=== PATIENT | female | born 1945 | race Caucasian/White ===

== ENCOUNTER → 2017-06-23 | Day surgery (SDC) | payer BC ==
[2017-06-16 08:34] VITALS: Ht 162.6 cm; Wt 64.5 kg
[~2017-06-23] VITALS: Ht 162.6 cm; Wt 64.5 kg
[~2017-06-23] MED LIST: CALC600T9 PO; LIDOCAINE HCL 2% 2 ML VIAL (20MG/ML) ONE; LISI-729 PO; MULT1CAP53 PO; PROPOFOL IV EMULSION 10 MG/ML 20 ML VIAL IV ONE; SODIUM CHLORIDE 0.9% 500ML 500 ML IV ONE
--- NOTE | 2017-06-23 08:21 | Endo History and Physical ---
History & Physical Date of Service: Jun 23, 2017. Chief Complaint: history of polyps Referring Physician: Dr. Ryan Zamudio History of Present Illness 71 yo presenting for follow up colonoscopy for a history of polyps.She is without GI complaint. Past Surgical History Hx Cardiac Surgery: No Hx Internal Defibrillator: No Hx Pacemaker: No Hx Abdominal Surgery: No (TUBAL LIGATION) Hx of Implantable Prosthesis: No Hx Post-Op Nausea and Vomiting: No Hx Cancer Surgery: No Hx Thoracic Surgery: No Hx Orthopedic: No Hx Urinary Tract Surgery: No Family History Colon CA Social History Smoking Status: Current Every Day Smoker Hx Substance Use: No Hx Alcohol Use: Yes (1-2 DRINKS DAILY) Allergies Coded Allergies: Nickel (Verified Allergy, Unknown, RASH WITH CONTACT, 06/16/17) Tetracycline (Verified Allergy, Unknown, NAUSEA/VOMITTING, 06/16/17) Uncoded Allergies: CHROME (Allergy, Unknown, RASH WITH CONTACT, 06/16/17) Current Medications Reported Home Medications Medications Dose Route/Sig Max Daily Dose Days Date Category Macular Health Formula (Multiple Vitamins W/ Minerals) 1 Cap Cap 1 Cap PO QPM 06/16/17 Reported Calcium + D (Calcium Carbonate-Vitamin D) 1 Tab Tab 1 Tab PO QPM 06/16/17 Reported Zestril (Lisinopril) 5 Mg Tab 5 Mg PO QPM 06/16/17 Reported Vital Signs Weight (Kilograms): 64.55 Height (Feet): 5 Height (Inches): 4 Date Time Temp Pulse Resp B/P (MAP) Pulse Ox O2 Delivery O2 Flow Rate FiO2 06/23/17 08:13 36.8 80 18 122/72 (89) 98 Room Air Physical Exam General Appearance: WD/WN, no apparent distress Respiratory/Chest: Respiratory effort: no dyspnea Auscultation: breath sounds normal, CTA except as noted Cardiovascular: Apical Impulse: not displaced Heart Auscultation: RRR, normal S1, normal S2 Abdomen: Bowel Sounds: normal Inspection & Palpation: soft, non-distended, no tenderness, guarding & rebound Assessment and Plan 71 yo presenting for follow up colonoscopy for a history of polyps. Plan for Colonoscopy
--- NOTE | 2017-06-23 08:58 | Discharge Instructions ---
Endoscopy Patient Instructions Date / Procedure(s) Performed Jun 23, 2017. Colonoscopy Allergy Information Coded Allergies: Nickel (Verified Allergy, Unknown, RASH WITH CONTACT, 06/16/17) Tetracycline (Verified Allergy, Unknown, NAUSEA/VOMITTING, 06/16/17) Uncoded Allergies: CHROME (Allergy, Unknown, RASH WITH CONTACT, 06/16/17) Discharge Date / Findings Jun 23, 2017. Two small polyps removed One cecal polyp and one transverse colon polyp-two prophylactically placed clips were placed on transverse colon site-no bleeding during or at end of procedure Small diverticuli Internal hemorrhoids Otherwise normal exam Medication Instructions Stopped Medication(s): stopped supplements on Thursday Provider Instructions Activity Restrictions - No exercising or heavy lifting for 24 hours. - Do not drink alcohol the day of the procedure. - Do not drive a car or operate machinery until the day after the procedure. - Do not make any important decisions or sign important papers in 24 hours after the procedure. Following Day: - Return to full activity which may include returning to work/school. Diet Start your diet with liquids and light foods (jello, soup, juice, toast). Then eat your usual diet if not nauseated. Treatment For Common After Affects For mild abdominal pain, bloating, or excessive gas: - Rest - Eat lightly - Lie on right side Follow-Up Information Follow-up with Dr. Ryan Zamudio as scheduled Anesthesia Information What You Should Know You have had a procedure that required some medicine to reduce anxiety and discomfort. This treatment is called moderate sedation. After receiving the treatment, you may be sleepy, but you will be able to breathe on your own. The effects of the treatment may last for several hours. Follow these instructions along with Activity/Diet recommendations noted above: * Do NOT do anything where dizziness or clumsiness would be dangerous. * Rest quietly at home today, then you can be up and about tomorrow. * Have a responsible person stay with you the rest of today. * You may have had an I.V. today. If so, you may take the dressing off later today. Recommendations Call your doctor if: * Trouble breathing * Continuous vomiting for more than 24 hours * Temperature above 101 degrees * Severe abdominal pain or bloating * Pain not relieved by pain medicine ordered * There is increased drainage or redness from any incision * A large amount of rectal bleeding greater than 2-3 tablespoons. (If you had a polyp/s removed or have hemorrhoids, a small amount of blood - from the rectum is to be expected.) * You have any unanswered questions or concerns. IN THE EVENT OF A SERIOUS EMERGENCY, GO TO THE NEAREST EMERGENCY ROOM Your discharge instructions were prepared by provider Torres Mata. Patient Instructions Signature Page Татьяна Burrell Patient (or Guardian) Signature/Date: I have read and understand the instructions given to me by my caregivers. Caregiver/RN/Doctor Signature/Date: The above-named patient and/or guardian has received patient instructions on this date. + Original Patient Signature Page (only) stays with chart. Please make copy for patient.
[2017-06-23 09:30] VITALS: BP 153/72; PULSE 58; O2SAT 98
--- NOTE | 2017-06-23 09:42 | Anesthesiology Progress Note ---
Anesthesia Post Op Note Date & Time Jun 23, 2017 at 09:42 Vital Signs Pain Intensity: 0 Vital Signs Past 12 Hours Date Time Temp Pulse Resp B/P (MAP) Pulse Ox O2 Delivery O2 Flow Rate FiO2 06/23/17 09:15 69 18 126/79 (95) 98 Room Air 06/23/17 09:00 72 18 93/67 (76) 98 Room Air 06/23/17 08:13 36.8 80 18 122/72 (89) 98 Room Air Notes Mental Status: alert / awake / arousable, participated in evaluation Pt Amnestic to Procedure: Yes Nausea / Vomiting: adequately controlled Pain: adequately controlled Airway Patency, RR, SpO2: stable & adequate BP & HR: stable & adequate Hydration State: stable & adequate Anesthetic Complications: no major complications apparent
--- NOTE | 2017-06-23 16:39 | GI REPORT ---
Procedure Date: 06/23/2017 8:16 AM Procedure: Colonoscopy Indications: High risk colon cancer surveillance: Personal history of colonic polyps Medicines: Monitored Anesthesia Care Complications: No immediate complications. Estimated blood loss: None. Estimated Blood Loss: Estimated blood loss: none. Procedure: Pre-Anesthesia Assessment: - Pre-Anesthesia Assessment: - Prior to the procedure, a History and Physical was performed, and patient medications, allergies and sensitivities were reviewed. The patient's tolerance of previous anesthesia was reviewed. Please see eyesFinder for complete details. - The risks and benefits of the procedure and the sedation options and risks were discussed with the patient. All questions were answered and informed consent was obtained. - Patient identification and proposed procedure were verified prior to the procedure by the physician and the nurse. The procedure was verified in the pre-procedure area in the procedure room. After obtaining informed consent, the endoscope was passed carefully and meticuously under direct vision and only advanced when the lumen was clearly identified, C02 insuflation was utilized throughout the entirity of the procedure. Throughout the procedure, the patient's blood pressure, pulse, and oxygen saturations were monitored continuously. After I obtained informed consent, the scope was passed under direct vision. Throughout the procedure, the patient's blood pressure, pulse, and oxygen saturations were monitored continuously. The scope was introduced through the anus and advanced to the cecum, identified by appendiceal orifice and ileocecal valve. The colonoscopy was performed without difficulty. The patient tolerated the procedure well. The quality of the bowel preparation was good. Findings: A 2 mm polyp was found in the cecum. The polyp was sessile. The polyp was removed with a jumbo cold forceps. Resection and retrieval were complete. A 7 mm polyp was found in the transverse colon. The polyp was sessile. The polyp was removed with a cold snare. Resection and retrieval were complete. To prevent bleeding post-intervention, two hemostatic clips were successfully placed (MR conditional). There was no bleeding during, or at the end, of the procedure. Multiple small-mouthed diverticula were found in the sigmoid colon. Internal hemorrhoids were found during retroflexion. Impression: - One 2 mm polyp in the cecum, removed with a jumbo cold forceps. Resected and retrieved. - One 7 mm polyp in the transverse colon, removed with a cold snare. Resected and retrieved. Clips (MR conditional) were placed. - Diverticulosis in the sigmoid colon. - Internal hemorrhoids. Recommendation: - Repeat colonoscopy in 5 years for surveillance based on pathology results. - Return to referring physician as previously scheduled. - Await pathology results. Torres Mata MD 06/23/2017 9:00:51 AM This report has been signed electronically. Note Initiated On: 06/23/2017 8:16 AM I attest to the content of the Intraoperative Record and orders documented therein, exceptions below
== END | disposition home or self-care (01) ==
LOC: C.GI 07:39
PROVIDERS: ATTEND Internal Medicine
DX: Z12.11 Encounter for screening for malignant neoplasm of colon (principal); D12.0 Benign neoplasm of cecum; D12.3 Benign neoplasm of transverse colon; K57.30 Diverticulosis of large intestine without perforation or abscess without bleeding; Z86.010 Personal history of colon polyps; I10 Essential (primary) hypertension; Z98.51 Tubal ligation status; F17.200 Nicotine dependence, unspecified, uncomplicated; Z88.1 Allergy status to other antibiotic agents; Z98.890 Other specified postprocedural states; Z80.0 Family history of malignant neoplasm of digestive organs

== ENCOUNTER 2018-09-07 10:15 | Inpatient (IN) ==
--- OUTSIDE RECORDS SUMMARY | 2018-09-07 10:17 | External Medical Summary | Continuity of Care Document ---
:1945 Author Name Cele Chu, Provider Address Unavailable Unavailable , Care Team Providers Name Role Phone Nicole Chu, Ranjit Unavailable [email or web address], [email or web address] Unavailable Unavailable Problems Active medical history not documented Allergies and Adverse Reactions Allergy history not documented Medications Medications not documented Procedures Procedures not documented Immunizations Immunizations not documented Plan of Treatment Planned Observations Planned Goals not documented Results No Known Results Results not documented
[2018-09-07] MEDS ORDERED: SODIUM CHLORIDE 0.9% 1000ML 1,000 ML IV SCH ×3 (10:30→12:45)
--- NOTE | 2018-09-07 10:36 | XRay Report ---
XR chest 1V portable CLINICAL HISTORY: 73 years-old Female presenting with Sepsis. TECHNIQUE: Portable upright AP view of the chest was obtained. COMPARISON: None. FINDINGS: Atherosclerosis of the aortic arch. Cardiac silhouette normal in size. No focal opacity. No large eff usion or pneumothorax. Osseous structures normal. Upper abdomen normal. IMPRESSION: 1. No acute cardiopulmonary disease. Electronically signed by: Juice Rose M.D. 09/07/2018 10:34 AM
[2018-09-07 10:56] LABS: Basophils # (auto) 0.02 K/uL (0-0.2); Basophils % (auto) 0.6 %; Hematocrit (blood only) 39.6 % (37-47); Hemoglobin 13.9 g/dL (12.0-16.0); Immature Granulocytes # (auto) 0.01 K/uL (0.00-0.02); Immature Granulocytes % (auto) 0.3 %; Lymphocytes # (auto) 0.45 K/uL (1.2-3.4); Lymphocytes % (auto) 12.6 %; Mean Corpuscular Hgb Conc 35.1 g/dL (32-36); Mean Corpuscular Volume 93.6 fL (80-100); Mean Platelet Volume 10.5 fL (7.4-10.4); Monocytes # (auto) 0.16 K/uL (0.11-0.59); Monocytes % (auto) 4.5 %; Neutrophils # (auto) 2.93 K/uL (1.4-6.5); Platelet Count 134 K/uL (130-400); RDW Coefficient of Variation 14.1 % (11.5-14.5); RDW Standard Deviation 48.6 fL (36.4-46.3); Red Blood Count 4.23 M/uL (4.2-5.4); White Blood Count 3.57 K/uL (4.8-10.8)
[2018-09-07 11:13] LABS: Albumin Level 3.3 gm/dl (3.4-5.0); BUN Creatinine Ratio 13.3 (10-20); Calcium 8.1 mg/dl (8.5-10.1); Creatinine Clr Calc Pharmacy 56.6 ml/min; Est GFR (African American) 78.8
[2018-09-07 11:16] LABS: Albumin Globulin Ratio 0.8 (0.9-2); Bilirubin,Total 0.5 mg/dl (0.2-1); Globulin 3.9 gm/dl (2.5-4.0); INR 1.1 (0.9-1.1); Partial Thromboplastin Ratio 1.2; Partial Thromboplastin Time 31.3 Seconds (21.0-31.0); Prothrombin Time 11.5 Seconds (9.0-12.0); Total Protein 7.2 gm/dl (6.4-8.2)
[2018-09-07 11:39] LABS: Appearance Urine Clear (Clear); Bacteria Urine Automated Negative (Negative); Bilirubin Urine Negative (Negative); Blood Urine 2+ (Negative); Color Urine Yellow; Glucose Urine UA Negative (Negative); Ketones Urine 1+ (Negative); Leukocyte Esterase Urine Negative (Negative); Nitrite Urine Negative (Negative); Protein Urine 1+ (Negative); Specific Gravity Urine 1.018 (1.000-1.030); Urobilinogen Urine Negative (Negative)
[2018-09-07 11:46] LABS: Lyme Ab IgG w/WB Rflx Negative (Negative); Lyme Ab IgM w/WB Rflx Negative (Negative)
[2018-09-07] MEDS ORDERED: DOXYCYCLINE HYCLATE 100 MG CAP PO STA (11:51)
[2018-09-07] MEDS ORDERED: ONDANSETRON INJ 2 MG/ML 2 ML VIAL IV STA (11:51)
[2018-09-07] MEDS ORDERED: POTASSIUM CHLORIDE 10 MEQ TABCR PO STA (12:12)
--- NOTE | 2018-09-07 13:21 | History & Physical Report ---
Date of Service September 07, 2018 Assessment & Plan (1) Fever of unknown origin: -Admit to [facility] with telemetry -Patient presenting from home with reports of generalized weakness, confusion, fever -In the ED, temp 39.3, initially tachycardic in the 110s (heart rate improved after IVF), WBC 3.5K; BP stable, normal lactic acid -Possible sepsis -Symptoms improving after receiving IVF in ED -Source of infection unclear at this time; UA does not suggest UTI, CXR negative for acute cardiopulmonary findings -Patient with history of tick bites and spends a lot of time outdoors; initial Lyme screening negative, Western blot has been sent for confirmatory and anaplasmosis testing has been sent as well -Check peripheral smear -Empiric doxycycline for possible tickborne illness -Noted dental work about 1 month ago, however patient took amoxicillin for 1 week following dental procedure; await blood culture results -Patient reporting back pain, consider back imaging if no other definite source of infection is found (2) Orthostatic hypotension: -Likely secondary to hypovolemia from dehydration of acute illness -IVF, monitor orthostatic vitals -Hold home dose of lisinopril (3) Elevated AST (SGOT): -Possibly due to underlying viral /tickborne illness -Patient also with history of alcohol abuse, drinking 4 beers/day -Follow LFTs (4) Hypokalemia: -K+ 3.0 -Replace, follow potassium levels -Magnesium noted to be WNL (5) Alcohol abuse: -Drinks 4 beers/day -Monitor for signs of withdrawal -Start multivitamin, folic acid, thiamine (6) Tobacco abuse: -Patient counseled regarding tobacco cessation (7) DVT prophylaxis: -SQ Lovenox History of Present Illness Chief Complaint: Weakness, confusion Primary Care Provider: Shade Obrien DO 73-year-old female who presents to the ED with generalized weakness and confusion. Family is at the bedside who provides some history. Yesterday, patient developed generalized weakness and nausea. She reports she felt as though she had a fever yesterday morning and took her temperature and it was just above 100 F. This morning, family noted that she was confused and very weak. She was also complaining of low back pain. EMS was called and patient was brought to the ED for further evaluation. Normally patient is very active and spends a lot of time outdoors in her flower garden. She reports she has pulled a 4 ticks off of herself over the past few months. Last one was about 1 month ago. Also a month ago, patient underwent a dental procedure and was given amoxicillin to take for 1 week after. She reports she completed the course of this antibiotic. No chest pain or shortness of breath. Patient was lightheaded and dizzy however no syncopal event. She denies abdominal pain, vomiting, diarrhea. No urinary symptoms. No known rashes. In the ED, patient is febrile at 39.3 and initially tachycardic in the 110s which improved with IVF. Labs show WBC 3.5K,, K+ 3.0, AST 60. Initial Lyme testing is negative. UA does not suggest UTI. CXR is negative for acute cardiopulmonary findings. Allergies Allergy/AdvReac Type Severity Reaction Status Date / Time nickel Allergy Unknown RASH WITH Verified 09/07/18 10:38 CONTACT tetracycline Allergy Unknown NAUSEA/VOMI Verified 09/07/18 10:38 TTING CHROME Allergy Unknown RASH WITH Uncoded 09/07/18 10:38 CONTACT Home Medications Home Medications Medication Instructions Recorded Confirmed Type calcium carbonate-vitamin D3 1 tab PO PM 09/07/18 09/07/18 History [Calcium 600 + D(3)] denosumab [Prolia] 60 mg SUBCUT UD 09/07/18 09/07/18 History lisinopril 10 mg PO PM 09/07/18 09/07/18 History [id number] 1 cap PO PM 09/07/18 09/07/18 History [Macular Health Formula] Past Med/Surg History Medical History Osteoporosis (Chronic) Hypertension (Chronic) Dyslipidemia (Chronic) Surgical History History of tubal ligation (Chronic) Family History Mother Diabetes Hypertension Father Cancer Social History Preferred Language: Gambian Communication Ability: Effective Visual Impairment: No Limitations Hearing Ability: Normal Sterile Proc Tech Required: No Beliefs That Will Affect Care: None marital status: marital status details: Current Living Situation: Spouse Other Information That Helps Us Care for You: No Feels Safe at Home: Yes Safety Concerns: Feels Safe At This Time Smoking Status: Current every day smoker Tobacco Type: cigarettes Do You Dip or Chew Tobacco: No Second Hand Exposure: No Tobacco Cessation Education Requested by Patient: No Hx Alcohol Use: Yes Alcohol type: beer Alcohol Intake Frequency Comment: 4 beers/day Hx Substance Use: No Review of Systems Review of Systems: ROS per HPI, all other systems reviewed and negative Physical Exam Constitutional: WD/WN, vitals as above Eyes: PERRL, conjunctivae normal, anicteric sclerae ENMT: external ear and nose normal, oropharynx normal Respiratory: normal respiratory effort, lungs clear to auscultation Cardiovascular: Rate/Rhythm: regular rate and regular rhythm Vessels: normal peripheral pulses Extremities: no edema Gastrointestinal (Abdomen): normal bowel sounds, soft, nontender, no hepatosplenomegaly Musculoskeletal: no cyanosis or clubbing, extremities motor strength 5/5 Skin: no rashes, warm and dry Neurologic: PERRL, EOMI, accommodation nl, no face palsy, no dysarthria Psychiatric: A+Ox3, euthymic affect Results & Data Vital Signs (Past 12 Hours) Vital Signs Temp Pulse Pulse Resp BP BP Pulse Ox 09/07/18 12:01 84 21 100/58 L 94 09/07/18 12:00 83 23 92 09/07/18 11:55 94 H 19 108/59 L 95 09/07/18 11:47 82 20 108/59 L 93 09/07/18 11:45 84 20 93 09/07/18 11:32 86 22 106/60 94 09/07/18 11:30 81 19 94 09/07/18 11:17 93 H 20 114/63 94 09/07/18 11:15 92 H 21 93 09/07/18 11:03 102 H 23 93 09/07/18 11:00 105 H 26 H 93 09/07/18 10:50 108 H 16 135/73 93 09/07/18 10:46 104 H 26 H 135/73 09/07/18 10:45 109 H 24 09/07/18 10:43 108 H 16 112/68 09/07/18 10:41 106 H 22 112/68 09/07/18 10:33 94 06/18/19 10:30 107 H 28 H 94 06/18/19 10:28 39.3 C H 107 H 29 H 132/73 96 09/07/18 10:22 110 H 27 H 132/73 95 Laboratory Results Short CBC 09/07/18 Range/Units 10:28 WBC 3.57 L (4.8-10.8) K/uL Hgb 13.9 (12.0-16.0) g/dL Hct 39.6 (37-47) % Plt Count 134 (130-400) K/uL BMP 09/07/18 10:28 Sodium 133 L Potassium 3.0 L Chloride 104 Carbon Dioxide 19 L BUN 11 Creatinine 0.85 Glucose 150 H Calcium 8.1 L Liver Function 09/07/18 Range/Units 10:28 Total Bilirubin 0.5 (0.2-1) mg/dl AST 60 H (15-37) U/L ALT 56 (12-78) U/L Alkaline Phosphatase 60 (45-117) U/L Albumin 3.3 L (3.4-5.0) gm/dl Urine 09/07/18 Range/Units 11:05 Urine Color Yellow Urine Appearance Clear (Clear) Urine pH 7.0 (4.5-7.5) Ur Specific [place] 1.018 (1.000-1.030) Urine Protein 1+ H (Negative) Urine Glucose (UA) Negative (Negative) Diagnostic Findings CXR IMPRESSION: 1. No acute cardiopulmonary disease. Code Status & VTE Plan Code Status Patient is a full code as per my discussion with her. VTE Prophylaxis Plan VTE Prophylaxis will be ordered: Yes Supervising Physician Co-Signing Physician Notes Pt was seen and examined. Agreed with Samantha BLAKE exam, assessment and plan . 73-year-old female with PMH of HTN, Dyslipidemia, osteoporosis, alcohol abuse, tobacco use was brought by EMS to the ED with generalized weakness, fever and confusion. Most of the history obtained from the family since pt is a poor historian. As per daughter symptoms started yesterday, pt woke up with weakness and nausea associated with fever with temp above 100 F and chills. Also she developed pain across low back area, non radiating. Daughter said that 2 to 3 weeks, she saw a tick crawling on the patient. Daughter said that in the past, pt found tick on her. In the ER, she felt dizzy and was found to be orthostatic. Denies any chest pain, palpitation and sob. in the ER temp 39.3, initially tachycardic in the 110s, WBC 3.5K; BP stable, normal lactic acid and CXR showed no acute intracranial abnormality. Blood cx collected in the ER pending. Work up for tick borne illness/anaplasmosis pending. Received IV doxycycline in the ER. Will continue doxycycline. Continue monitor closely and continue gentle hydration. Refer to Samantha BLAKE documentation for other problems. MD Chad
[2018-09-07] MEDS: DOXYCYCLINE HYCLATE 100 MG in DEXTROSE 5% 100 ML IV SCH ×2 (14:37→21:08)
[2018-09-07] MEDS ORDERED: ACETAMINOPHEN 325 MG TAB PO PRN (14:57)
[2018-09-07] MEDS ORDERED: LORazepam 1 MG/2 ML VIAL IV PRN (14:57)
[2018-09-07] MEDS ORDERED: THIAMINE HCL 100 MG TAB PO STA (14:57)
[2018-09-07] MEDS: SODIUM CHLORIDE 0.9% 1000ML 1,000 ML IV SCH (15:23)
[2018-09-07] MEDS: FOLIC ACID 1 MG TAB PO SCH (15:49)
[2018-09-07] MEDS: MULTIVITAMIN TAB PO SCH (15:49)
[2018-09-07] MEDS ORDERED: ENOXAPARIN INJ 40 MG/0.4 ML SYR SQ SCH (16:00)
[2018-09-07] MEDS ORDERED: IBUPROFEN 600 MG TAB PO ONE (16:42)
--- NOTE | 2018-09-07 16:50 | Emergency Department Note ---
Entered by Yudith Gray acting as a scribe for History of Present Illness General Chief complaint: Fever Source: patient Mode of arrival: EMS Limitations: no limitations History of Present Illness Onset (ago): day(s) 1 Location: head (confusion) Pain Consistency: + constant Quality: + other (confusion) Associated symptoms: + confusion, + cough, + fever/chills (The patient complains of fever of 101.4) and + other (The patient complains of lightheadedness and dark urine.) Treatments prior to arrival: other (970 mg of Tylenol ) The patient is a 73 year old female who presents to the ED via EMS with complaints of constant fever, back pain, low urine output, and mild confusion that onset 1 day ago. The patient presents with her . The patient complains of fever of 101.4, lightheadedness, cough, and dark urine. The patient denies recent falls. The patient received 970 mg of Tylenol in route. Per , the patient has had several tick bites recently and they [place] an area with deer and bears. Home Medications Home Medications Medication Instructions Recorded Confirmed Type calcium carbonate-vitamin D3 1 tab PO PM 09/07/18 09/07/18 History [Calcium 600 + D(3)] denosumab [Prolia] 60 mg SUBCUT UD 09/07/18 09/07/18 History lisinopril 10 mg PO PM 09/07/18 09/07/18 History [id number] 1 cap PO PM 09/07/18 09/07/18 History [Macular Health Formula] Allergies Allergy/AdvReac Type Severity Reaction Status Date / Time nickel Allergy Unknown RASH WITH Verified 09/07/18 10:38 CONTACT tetracycline Allergy Unknown NAUSEA/VOMI Verified 09/07/18 10:38 TTING CHROME Allergy Unknown RASH WITH Uncoded 09/07/18 10:38 CONTACT Past Med/Surg History Medical History Osteoporosis (Chronic) Hypertension (Chronic) Dyslipidemia (Chronic) Surgical History History of tubal ligation (Chronic) Family History Mother Diabetes Hypertension Father Cancer Social History Preferred Language: Taiwanese Communication Ability: Effective Visual Impairment: No Limitations Hearing Ability: Normal 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 and A total of 10 systems reviewed and were otherwise negative Physical Exam Vital Signs Vital Signs - 24 hr 09/07/18 10:22 09/07/18 10:28 09/07/18 10:30 Temperature 39.3 C H Temperature Source Oral Sepsis Recent Fever Within 48 Hours No Sepsis New/Unexplained Change in Mental Status No Sepsis Action Taken by Nursing No Action Required Pulse Rate 110 H 107 H 107 H Pulse Rate [Apical] Pulse Rate from SpO2 Sensor 109 H 108 H 107 H Respiratory Rate 27 H 29 H 28 H Blood Pressure 132/73 132/73 Blood Pressure [Right Arm] Blood Pressure Mean 92 92 Blood Pressure Mean [Right Arm] Pulse Oximetry 95 96 94 Oxygen Delivery Method Room Air 09/07/18 10:33 09/07/18 10:41 09/07/18 10:43 Temperature Temperature Source Sepsis Recent Fever Within 48 Hours Sepsis New/Unexplained Change in Mental Status Sepsis Action Taken by Nursing Pulse Rate 106 H Pulse Rate [Apical] 108 H Pulse Rate from SpO2 Sensor Respiratory Rate 22 16 Blood Pressure 112/68 Blood Pressure [Right Arm] 112/68 Blood Pressure Mean 82 Blood Pressure Mean [Right Arm] 82 Pulse Oximetry 94 Oxygen Delivery Method Room Air 09/07/18 10:45 09/07/18 10:46 09/07/18 10:50 Temperature Temperature Source Sepsis Recent Fever Within 48 Hours Sepsis New/Unexplained Change in Mental Status Sepsis Action Taken by Nursing Pulse Rate 109 H 104 H 108 H Pulse Rate [Apical] Pulse Rate from SpO2 Sensor 108 H Respiratory Rate 24 26 H 16 Blood Pressure 135/73 135/73 Blood Pressure [Right Arm] Blood Pressure Mean 93 93 Blood Pressure Mean [Right Arm] Pulse Oximetry 93 Oxygen Delivery Method 09/07/18 11:00 09/07/18 11:03 09/07/18 11:15 Temperature Temperature Source Sepsis Recent Fever Within 48 Hours Sepsis New/Unexplained Change in Mental Status Sepsis Action Taken by Nursing Pulse Rate 105 H 102 H 92 H Pulse Rate [Apical] Pulse Rate from SpO2 Sensor 106 H 104 H 93 H Respiratory Rate 26 H 23 21 Blood Pressure Blood Pressure [Right Arm] Blood Pressure Mean 79 Blood Pressure Mean [Right Arm] Pulse Oximetry 93 93 93 Oxygen Delivery Method 09/07/18 11:17 09/07/18 11:30 09/07/18 11:32 Temperature Temperature Source Sepsis Recent Fever Within 48 Hours Sepsis New/Unexplained Change in Mental Status Sepsis Action Taken by Nursing Pulse Rate 93 H 81 86 Pulse Rate [Apical] Pulse Rate from SpO2 Sensor 93 H 84 87 Respiratory Rate 20 19 22 Blood Pressure 114/63 106/60 Blood Pressure [Right Arm] Blood Pressure Mean 80 75 Blood Pressure Mean [Right Arm] Pulse Oximetry 94 94 94 Oxygen Delivery Method 09/07/18 11:45 09/07/18 11:47 09/07/18 11:55 Temperature Temperature Source Sepsis Recent Fever Within 48 Hours Sepsis New/Unexplained Change in Mental Status Sepsis Action Taken by Nursing Pulse Rate 84 82 94 H Pulse Rate [Apical] Pulse Rate from SpO2 Sensor 85 84 92 H Respiratory Rate 20 20 19 Blood Pressure 108/59 L 108/59 L Blood Pressure [Right Arm] Blood Pressure Mean 75 75 Blood Pressure Mean [Right Arm] Pulse Oximetry 93 93 95 Oxygen Delivery Method 09/07/18 12:00 09/07/18 12:01 09/07/18 12:02 Temperature Temperature Source Sepsis Recent Fever Within 48 Hours Sepsis New/Unexplained Change in Mental Status Sepsis Action Taken by Nursing Pulse Rate 83 84 79 Pulse Rate [Apical] Pulse Rate from SpO2 Sensor 83 84 80 Respiratory Rate 23 21 20 Blood Pressure 100/58 L Blood Pressure [Right Arm] Blood Pressure Mean 72 Blood Pressure Mean [Right Arm] Pulse Oximetry 92 94 93 Oxygen Delivery Method 09/07/18 12:15 09/07/18 12:16 09/07/18 12:30 Temperature Temperature Source Sepsis Recent Fever Within 48 Hours Sepsis New/Unexplained Change in Mental Status Sepsis Action Taken by Nursing Pulse Rate 77 89 98 H Pulse Rate [Apical] Pulse Rate from SpO2 Sensor 78 87 96 H Respiratory Rate 21 18 19 Blood Pressure 108/59 L Blood Pressure [Right Arm] Blood Pressure Mean 75 Blood Pressure Mean [Right Arm] Pulse Oximetry 93 93 96 Oxygen Delivery Method 09/07/18 12:31 09/07/18 12:37 Temperature Temperature Source Sepsis Recent Fever Within 48 Hours Sepsis New/Unexplained Change in Mental Status Sepsis Action Taken by Nursing Pulse Rate 95 H 88 Pulse Rate [Apical] Pulse Rate from SpO2 Sensor 97 H 90 Respiratory Rate 17 20 Blood Pressure 70/54 L 115/61 Blood Pressure [Right Arm] Blood Pressure Mean 59 79 Blood Pressure Mean [Right Arm] Pulse Oximetry 96 91 Oxygen Delivery Method GENERAL: She is oriented to person, place, and time. She appears well-developed and well-nourished. She does not appear distressed. HENT: Exam performed. - Head: Normocephalic and atraumatic. - Right Ear: External ear normal. No mastoid tenderness. - Left Ear: External ear normal. No mastoid tenderness. - Mouth/Throat: The oropharynx is clear and moist. No trismus in the jaw. No de ntal abscesses or uvula swelling. No oropharyngeal exudate or tonsillar abscesses. EYES: Conjunctivae and EOM are normal. Pupils are equal, round, and reactive to light. Right eye exhibits no discharge. Left eye exhibits no discharge. No scleral icterus. NECK: Normal range of motion. Neck supple. No JVD present. No spinous process tenderness present. No carotid bruit present. No rigidity. No tracheal deviation and normal range of motion present. No Brudzinski's sign and no Kernig's sign noted. CV: Tachycardic rate, regular rhythm, normal heart sounds and intact distal pulses. There is no peripheral edema. Palpable radial pulses bue. PULM/CHEST: Effort normal and breath sounds normal. No respiratory distress. No stridor. She has no wheezes. She has no rales. Chest Wall: She exhibits no tenderness. ABD: The abdomen is soft. Bowel sounds are normal. She has no distension. No mass is present. There is no tenderness. There is no rebound, no guarding, no Smith's sign and no tenderness at McBurney's point. Rovsig negative MUSC/SKEL: Normal range of motion. There is no peripheral edema, tenderness or deformity. LYMPH: No cervical adenopathy. NEURO: She is alert and oriented to person, place, and time. She has normal strength. No cranial nerve deficit or sensory deficit. Coordination and gait normal. GCS eye subscore is 4. GCS verbal subscore is 5. GCS motor subscore is 6. cerbellar tests wnl. SKIN: Skin is warm and dry. She is not diaphoretic. PSYCH: She has a normal mood and affect. Her behavior is normal. Judgment and thought content normal. Course 1000: Medical command was taken regarding this patient prior to her arrival. She was tachycardic and febrile, called for order for Tylenol and IV fluids. 1016: Past medical records reviewed. The patient was evaluated in room B2. A complete history and physical examination was performed. Patient found to be febrile and tachycardic on initial presentation. Patient placed on radiation monitor large-bore IV access was obtained. Code sepsis was called. 1242: Blood pressure stable. Repeat exam shows that the patient is alert and oriented X3. She states that she feels better after fluid hydration and Tylenol. Repeat Exam shows that she is clear to auscultation, has no pain of palpation of abdomen, is neurologically intact, and shows no meningeal signs. Labs show a n ormal lactic acid level. Her potassium is low at 3 and was replaced in the ED. She is tolerating PO. Liver enzyme with an AST of 60 and mild leukopenia. She had a leukopenic white blood cell count of 3.7. Per family, the patient has recently removed multiple ticks from herself and lives in an area with many ticks. There is concern for anaplasmosis given her elevated liver enzyme tests as well as her leukopenia. She will be treated with doxycycline empirically. Confirmatory testing for Lyme, anaplasmosis, and ehrlichiosis has been sent. I spoke with the [facility] hospitalist to admit to Dr. Bonilla. He states that he wants a peripheral smear to be completed. Consultations Consultation #1: 1200: I reviewed the patient's case with Samantha BLAKE Hospitalist [facility] for Dr. Bonilla. She will evaluate the patient for further management. Time: 12:00 Administered Medications Acetaminophen (Tylenol) 650 mg PO Q4H PRN PRN Reason: pain/fever Stop: 10/07/18 14:56 Last Admin: 09/07/18 15:14 Dose: 650 mg Documented by: [id number] Enoxaparin Sodium (Lovenox) 40 mg SQ Q24H ILAN Stop: 10/07/18 15:59 Last Admin: 09/07/18 15:49 Dose: 40 mg Documented by: [id number] Folic Acid (Folvite) 1 mg PO QAM ILAN Stop: 10/07/18 14:56 Last Admin: 09/07/18 15:49 Dose: 1 mg Documented by: [id number] Doxycycline Hyclate 100 mg/ (Dextrose) 110 mls @ 50 mls/hr IV BID ILAN Stop: 09/21/18 12:44 Last Admin: 09/07/18 14:37 Dose: 50 mls/hr Documented by: [id number] Sodium Chloride (Nss 1000ml) 1,000 mls @ 125 mls/hr IV .Q8H ILAN Stop: 10/07/18 14:56 Last Admin: 09/07/18 15:23 Dose: 125 mls/hr Documented by: [id number] [facility]ivitamins (Multivitamin Tab) [facility] [place]: 10/07/18 14:56 Last Admin: 09/07/18 15:49 Dose: 1 tab Documented by: [id number] Discontinued Medications Doxycycline Hyclate (Vibramycin) 100 mg PO NOW STA Stop: 09/07/18 11:52 Last Admin: 09/07/18 13:47 Dose: Not Given Documented by: [id number] Sodium Chloride (Nss 1000ml) 1,000 mls @ 999 mls/hr IV .Q1H1M ILAN Stop: 09/07/18 11:30 Last Infusion: 09/07/18 12:09 Dose: 0 mls/hr Documented by: [id number] Admin: 09/07/18 10:56 Dose: 999 mls/hr Documented by: [id number] Sodium Chloride (Nss 1000ml) 1,000 mls @ 125 mls/hr IV .Q8H ILAN Stop: 10/07/18 12:44 Last Infusion: 09/07/18 15:00 Dose: 0 mls/hr Documented by: [id number] Admin: 09/07/18 13:46 Dose: 125 mls/hr Documented by: [id number] Sodium Chloride (Nss 1000ml) 1,000 mls @ 999 mls/hr IV .Q1H1M ILAN Stop: 09/07/18 13:40 Last Infusion: 09/07/18 14:37 Dose: 0 mls/hr Documented by: [id number] Admin: 09/07/18 13:00 Dose: 999 mls/hr Documented by: [id number] Ondansetron HCl (Zofran) 4 mg IV NOW STA Stop: 09/07/18 11:52 Last Admin: 09/07/18 13:46 Dose: 4 mg Documented by: [id number] Potassium Chloride (Klor-Con M10) 40 meq PO NOW STA Stop: 09/07/18 12:13 Last Admin: 09/07/18 13:46 Dose: 40 meq Documented by: [id number] Thiamine HCl (Vitamin B-1) 100 mg PO QAM STA Stop: 09/07/18 14:58 Last Admin: 09/07/18 15:49 Dose: 100 mg Documented by: [id number] Medical Decision Making Medical Records Attestation: I reviewed the patient's medical records. Home Medications Current Medication List: was personally reviewed by me Laboratory Data Attestation: I reviewed the patient's lab results. Result diagrams: 09/07/18 10:28 09/07/18 10:28 Lab Results 09/07/18 09/07/18 09/07/18 Range/Units 10:28 10:28 10:28 WBC 3.57 L (4.8-10.8) K/uL RBC 4.23 (4.2-5.4) M/uL Hgb 13.9 (12.0-16.0) g/dL Hct 39.6 (37-47) % MCV 93.6 (80-100) fL MCH 32.9 (25-34) pg MCHC 35.1 (32-36) g/dL RDW Std Deviation 48.6 H (36.4-46.3) fL RDW Coeff of Susy 14.1 (11.5-14.5) % Plt Count 134 (130-400) K/uL MPV 10.5 H (7.4-10.4) fL Immature Gran % (Auto) 0.3 % Neut % (Auto) 82.0 % Lymph % (Auto) 12.6 % [place] % (Auto) 4.5 % Eos % (Auto) 0.0 % Baso % (Auto) 0.6 % Immature Gran # (Auto) 0.01 (0.00-0.02) K/uL Neut # (Auto) 2.93 (1.4-6.5) K/uL Lymph # (Auto) 0.45 L (1.2-3.4) K/uL [place] # (Auto) 0.16 (0.11-0.59) K/uL Eos # (Auto) 0.00 (0-0.5) K/uL Baso # (Auto) 0.02 (0-0.2) K/uL Peripher Smr Path Cons Cancelled PT 11.5 (9.0-12.0) Seconds INR 1.1 (0.9-1.1) APTT 31.3 H (21.0-31.0) Seconds PTT Ratio 1.2 Sodium 133 L (136-145) mmol/L Potassium 3.0 L (3.5-5.1) mmol/L Chloride 104 (98-107) mmol/L Carbon Dioxide 19 L (21-32) mmol/L Anion Gap 10.0 (3-11) BUN 11 (7-18) mg/dl Creatinine 0.85 (0.6-1.2) mg/dl Est Cr Clr Drug Dosing 56.6 ml/min Est GFR ( Amer) 78.8 Est GFR (Non-Af Amer) 68.0 BUN/Creatinine Ratio 13.3 (10-20) Glucose 150 H (70-99) mg/dl Lactate (0.4-2.0) mmol/L Calcium 8.1 L (8.5-10.1) mg/dl Magnesium (1.8-2.4) mg/dl Total Bilirubin 0.5 (0.2-1) mg/dl AST 60 H (15-37) U/L ALT 56 (12-78) U/L Alkaline Phosphatase 60 (45-117) U/L Total Protein 7.2 (6.4-8.2) gm/dl Albumin 3.3 L (3.4-5.0) gm/dl Globulin 3.9 (2.5-4.0) gm/dl Albumin/Globulin Ratio 0.8 L (0.9-2) Urine Color Urine Appearance (Clear) Urine pH (4.5-7.5) Ur Specific [place] (1.000-1.030) Urine Protein (Negative) Urine Glucose (UA) (Negative) Urine Ketones (Negative) Urine Blood (Negative) Urine Nitrite (Negative) Urine Bilirubin (Negative) Urine Urobilinogen (Negative) Ur Leukocyte Esterase (Negative) Urine WBC (Auto) (0-5) /hpf Urine RBC (Auto) (0-4) /hpf U Hyaline Cast (Auto) (0-5) /lpf U Epithel Cells (Auto) (0-5) /lpf Urine Bacteria (Auto) (Negative) Lyme Disease IgG Ab (Negative) Lyme Disease IgM Ab (Negative) 09/07/18 09/07/18 09/07/18 Range/Units 10:28 10:28 10:28 WBC (4.8-10.8) K/uL RBC (4.2-5.4) M/uL Hgb (12.0-16.0) g/dL Hct (37-47) % MCV (80-100) fL MCH (25-34) pg MCHC (32-36) g/dL RDW Std Deviation (36.4-46.3) fL RDW Coeff of Susy (11.5-14.5) % Plt Count (130-400) K/uL MPV (7.4-10.4) fL Immature Gran % (Auto) % Neut % (Auto) % Lymph % (Auto) % [place] % (Auto) % Eos % (Auto) % Baso % (Auto) % Immature Gran # (Auto) (0.00-0.02) K/uL Neut # (Auto) (1.4-6.5) K/uL Lymph # (Auto) (1.2-3.4) K/uL [place] # (Auto) (0.11-0.59) K/uL Eos # (Auto) (0-0.5) K/uL Baso # (Auto) (0-0.2) K/uL Peripher Smr Path Cons PT (9.0-12.0) Seconds INR (0.9-1.1) APTT (21.0-31.0) Seconds PTT Ratio Sodium (136-145) mmol/L Potassium (3.5-5.1) mmol/L Chloride (98-107) mmol/L Carbon Dioxide (21-32) mmol/L Anion Gap (3-11) BUN (7-18) mg/dl Creatinine (0.6-1.2) mg/dl Est Cr Clr Drug Dosing ml/min Est GFR ( Amer) Est GFR (Non-Af Amer) BUN/Creatinine Ratio (10-20) Glucose (70-99) mg/dl Lactate 1.1 (0.4-2.0) mmol/L Calcium (8.5-10.1) mg/dl Magnesium (1.8-2.4) mg/dl Total Bilirubin (0.2-1) mg/dl AST (15-37) U/L ALT (12-78) U/L Alkaline Phosphatase (45-117) U/L Total Protein (6.4-8.2) gm/dl Albumin (3.4-5.0) gm/dl Globulin (2.5-4.0) gm/dl Albumin/Globulin Ratio (0.9-2) Urine Color Urine Appearance (Clear) Urine pH (4.5-7.5) Ur Specific [place] (1.000-1.030) Urine Protein (Negative) Urine Glucose (UA) (Negative) Urine Ketones (Negative) Urine Blood (Negative) Urine Nitrite (Negative) Urine Bilirubin (Negative) Urine Urobilinogen (Negative) Ur Leukocyte Esterase (Negative) Urine WBC (Auto) (0-5) /hpf Urine RBC (Auto) (0-4) /hpf U Hyaline Cast (Auto) (0-5) /lpf U Epithel Cells (Auto) (0-5) /lpf Urine Bacteria (Auto) (Negative) Lyme Disease IgG Ab Negative (Negative) Lyme Disease IgM Ab Negative (Negative) 09/07/18 09/07/18 Range/Units 10:28 11:05 WBC (4.8-10.8) K/uL RBC (4.2-5.4) M/uL Hgb (12.0-16.0) g/dL Hct (37-47) % MCV (80-100) fL MCH (25-34) pg MCHC (32-36) g/dL RDW Std Deviation (36.4-46.3) fL RDW Coeff of Susy (11.5-14.5) % Plt Count (130-400) K/uL MPV (7.4-10.4) fL Immature Gran % (Auto) % Neut % (Auto) % Lymph % (Auto) % [place] % (Auto) % Eos % (Auto) % Baso % (Auto) % Immature Gran # (Auto) (0.00-0.02) K/uL Neut # (Auto) (1.4-6.5) K/uL Lymph # (Auto) (1.2-3.4) K/uL [place] # (Auto) (0.11-0.59) K/uL Eos # (Auto) (0-0.5) K/uL Baso # (Auto) (0-0.2) K/uL Peripher Smr Path Cons PT (9.0-12.0) Seconds INR (0.9-1.1) APTT (21.0-31.0) Seconds PTT Ratio Sodium (136-145) mmol/L Potassium (3.5-5.1) mmol/L Chloride (98-107) mmol/L Carbon Dioxide (21-32) mmol/L Anion Gap (3-11) BUN (7-18) mg/dl Creatinine (0.6-1.2) mg/dl Est Cr Clr Drug Dosing ml/min Est GFR ( Amer) Est GFR (Non-Af Amer) BUN/Creatinine Ratio (10-20) Glucose (70-99) mg/dl Lactate (0.4-2.0) mmol/L Calcium (8.5-10.1) mg/dl Magnesium 2.0 (1.8-2.4) mg/dl Total Bilirubin (0.2-1) mg/dl AST (15-37) U/L ALT (12-78) U/L Alkaline Phosphatase (45-117) U/L Total Protein (6.4-8.2) gm/dl Albumin (3.4-5.0) gm/dl Globulin (2.5-4.0) gm/dl Albumin/Globulin Ratio (0.9-2) Urine Color Yellow Urine Appearance Clear (Clear) Urine pH 7.0 (4.5-7.5) Ur Specific [place] 1.018 (1.000-1.030) Urine Protein 1+ H (Negative) Urine Glucose (UA) Negative (Negative) Urine Ketones 1+ H (Negative) Urine Blood 2+ H (Negative) Urine Nitrite Negative (Negative) Urine Bilirubin Negative (Negative) Urine Urobilinogen Negative (Negative) Ur Leukocyte Esterase Negative (Negative) Urine WBC (Auto) 1-5 (0-5) /hpf Urine RBC (Auto) 10-30 H (0-4) /hpf U Hyaline Cast (Auto) 1-5 (0-5) /lpf U Epithel Cells (Auto) 10-20 H (0-5) /lpf Urine Bacteria (Auto) Negative (Negative) Lyme Disease IgG Ab (Negative) Lyme Disease IgM Ab (Negative) Imaging Data Radiologist's Impression: Radiology results as stated below per my review and the radiologist's interpretation: XR chest 1V portable CLINICAL HISTORY: 73 years-old Female presenting with Sepsis. TECHNIQUE: Portable upright AP view of the chest was obtained. COMPARISON: None. FINDINGS: Atherosclerosis of the aortic arch. Cardiac silhouette normal in size. No focal opacity. No large effusion or pneumothorax. Osseous structures normal. Upper abdomen normal. IMPRESSION: 1. No acute cardiopulmonary disease. Electronically signed by: Juice Rose M.D. 09/07/2018 10:34 AM Dictated: 09/07/18 1033 Transcribed: 09/07/18 1033 ECG Data Attestation: I personally reviewed and interpreted this ECG as follows: Indication: altered mental status (confusion) and tachycardia Rate (beats per minute): 111 Rhythm: sinus rhythm Findings: + other (UT, QRS, QTC within normal limits); no ST depression and no ST elevation Blood Pressure Blood Pressure Findings: Low blood pressure Blood Pressure Disposition: further management by hospitalist JOSE Narrative 1000: Medical command was taken regarding this patient prior to her arrival. She was tachycardic and febrile, called for order for Tylenol and IV fluids. 1016: Past medical records reviewed. The patient was evaluated in room B2. A complete history and physical examination was performed. Patient found to be febrile and tachycardic on initial presentation. Patient placed on radiation monitor large-bore IV access was obtained. Code sepsis was called. 1242: Blood pressure stable. Repeat exam shows that the patient is alert and oriented X3. She states that she feels better after fluid hydration and Tylenol. Repeat Exam shows that she is clear to auscultation, has no pain of palpation of abdomen, is neurologically intact, and shows no meningeal signs. Labs show a normal lactic acid level. Her potassium is low at 3 and was replaced in the ED. She is tolerating PO. Liver enzyme with an AST of 60 and mild leukopenia. She had a leukopenic white blood cell count of 3.7. Per family, the patient has recently removed multiple ticks from herself and lives in an area with many ticks. There is concern for anaplasmosis given her elevated liver enzyme tests as well as her leukopenia. She will be treated with doxycycline empirically. Confirmatory testing for Lyme, anaplasmosis, and ehrlichiosis has been sent. [facility] Bonilla. He states that he wants a peripheral smear to be completed. Impression & Plan Sepsis, Hypokalemia Critical Care Time Critical Care Time: Yes (36) Total Critical Care Time: 36 I have personally spent 36 minutes of critical care time in the direct management of this patient. This includes bedside care, interpretation of diagnostic studies, and testing, discussion with consultants, patient, and family members, and other required patient management activities. This 36 minutes is in excess of all separately billable procedures. Discharge Plan Visit Data *Final* Discharge Date/Time: 09/07/18 14:41 Chief Complaint: Fever ED Provider: Josh Hollingsworth Discharge Problem: Sepsis, Hypokalemia Patient Disposition: Admitted As Inpatient Discharge Instructions Interventions: ED Discharge Assessment Last Done: 09/07/18 14:41 The scribe's documentation has been prepared under my direction and personally reviewed by me in its entirety. I confirm that the note above accurately reflects all work, treatment, procedures, and medical decision making performed by me.
[2018-09-07] MEDS ORDERED: cefTRIAXone SODIUM 1,000 MG in DEXTROSE 5% 50 ML IV SCH (17:00)
[2018-09-07] MEDS: CALCIUM 600MG + VIT D 400 IU TAB PO SCH (22:11)
[2018-09-08] MEDS: SODIUM CHLORIDE 0.9% 1000ML 1,000 ML IV SCH ×3 (00:05→16:09)
[2018-09-08] MEDS ORDERED: DOXYCYCLINE HYCLATE 100 MG in DEXTROSE 5% 100 ML IV SCH (03:00)
[2018-09-08 07:07] LABS: Hematocrit (blood only) 35.2 % (37-47); Mean Corpuscular Hgb Conc 34.1 g/dL (32-36); Mean Corpuscular Volume 94.6 fL (80-100); RDW Coefficient of Variation 14.4 % (11.5-14.5); RDW Standard Deviation 49.9 fL (36.4-46.3); Red Blood Count 3.72 M/uL (4.2-5.4); White Blood Count 2.33 K/uL (4.8-10.8)
[2018-09-08 07:41] LABS: Albumin Level 2.4 gm/dl (3.4-5.0); BUN Creatinine Ratio 17.9 (10-20); Calcium 7.2 mg/dl (8.5-10.1); Creatinine Clr Calc Pharmacy 84.9 ml/min; Est GFR (African American) 107.2; Est GFR (Non-African American) 92.5; Potassium 3.5 mmol/L (3.5-5.1)
[2018-09-08 07:43] LABS: Albumin Globulin Ratio 0.8 (0.9-2); Bilirubin,Total 0.3 mg/dl (0.2-1); Total Protein 5.4 gm/dl (6.4-8.2)
[2018-09-08 07:46] LABS: Mean Platelet Volume 10.9 fL (7.4-10.4); Platelet Count 73 K/uL (130-400)
[2018-09-08 07:47] LABS: Platelet Estimate Decreased (Normal)
[2018-09-08] MEDS: MULTIVITAMIN TAB PO SCH (07:47)
[2018-09-08] MEDS: FOLIC ACID 1 MG TAB PO SCH (07:47)
--- NOTE | 2018-09-08 12:33 | Hospitalist Progress Note ---
Date of Service September 08, 2018 Assessment & Plan (1) Anaplasmosis: Doxy, cont supportive care. Trend daily labs. Leukopenia and thrombus cytopenia present and consistent with infection. (2) Orthostatic hypotension: -Likely secondary to hypovolemia from dehydration of acute illness -IVF, orthostatics are negative this morning. -Hold home dose of lisinopril (3) Elevated AST (SGOT): -Possibly due to underlying viral /tickborne illness -Patient also with history of alcohol abuse, drinking 4 beers/day -approx same today (4) Alcohol abuse: -Drinks 4 beers/day -Monitor for signs of withdrawal -Continue multivitamin, folic acid, thiamine (5) Tobacco abuse: Patient counseled regarding tobacco cessation (6) DVT prophylaxis: SCDs with Lovenox held in setting of thrombus cytopenia. Full code Disposition-continue telemetry monitoring. Sherie Donato DO [facility] Hospitalist Subjective 73-year-old female with multiple recent tick bites from working in her garden presented with generalized weakness, confusion, and fever. Lab abnormalities and clinical picture were consistent with sepsis. A peripheral smear was checked and revealed a cytoplasmic inclusion body consistent with Anaplasma. She was started on doxycycline and improved overnight. She is mentating at baseline today and denies any pain. Skin check reveals no evidence of rash or bite anywhere. She was orthostatic last night and reports persistent dizziness with standing. Repeat orthostatics today or negative after IV fluids overnight. She is requesting diet be advanced from clear liquids to solid food. Multiple questions per family members that were answered to their satisfaction. Review of Systems Review of Systems: All systems reviewed & are unremarkable except as noted in HPI & below Physical Exam Physical Exam: CONSTITUTIONAL: WNWD, vitals as above, generally well-appearin g EYES: normal conjunctivae, no scleral icterus ENT: MMM RESPIRATORY: clear to auscultation bilaterally, no crackles, rales or wheezes, normal respiratory effort CARDIOVASCULAR: regular rate and rhythm, S1 and 2 heard without murmurs, gallops or rubs, no JVD, no peripheral edema GASTROINTESTINAL: normal bowel sounds, soft, nontender, nondistended MUSCULOSKELETAL: strength 5/5 throughout, head is normocephalic and atraumatic, neck supple, normal palpation of chest wall without tenderness SKIN: warm and dry, no rashes or evidence of insect bite. NEUROLOGIC: CN 2-12 grossly intact, no sensory deficit, normal cognition, normal speech, no tremor. No gross focal deficits. PSYCHIATRIC: alert cooperative and oriented to person, place and time. Results & Data Vital Signs (Past 12 Hours) Vital Signs Temp Pulse Resp BP BP Pulse Ox 09/08/18 12:00 37.1 C 67 18 109/69 95 09/08/18 11:10 36.7 C 61 16 107/67 96 09/08/18 07:36 36.7 C 73 18 104/63 98 09/08/18 04:10 36.6 C 59 L 18 91/60 L 96 Laboratory Results Short CBC 09/08/18 Range/Units 06:56 WBC 2.33 L (4.8-10.8) K/uL Hgb 12.0 (12.0-16.0) g/dL Hct 35.2 L (37-47) % Plt Count 73 L (130-400) K/uL BMP 09/08/18 06:56 Sodium 141 D Potassium 3.5 D Chloride 114 H Carbon Dioxide 20 L BUN 10 Creatinine 0.56 L Glucose 81 Calcium 7.2 L Liver Function 09/08/18 Range/Units 06:56 Total Bilirubin 0.3 (0.2-1) mg/dl AST 63 H (15-37) U/L ALT 67 (12-78) U/L Alkaline Phosphatase 46 (45-117) U/L Albumin 2.4 L (3.4-5.0) gm/dl Medications Administered Current Inpatient Medications Acetaminophen (Tylenol) 650 mg PO Q4H PRN PRN Reason: pain/fever Stop: 10/07/18 14:56 Last Admin: 09/07/18 15:14 Dose: 650 mg Documented by: Doxycycline Hyclate (Vibramycin) 100 mg PO Q12H ILAN Stop: 09/22/18 17:59 Enoxaparin Sodium (Lovenox) 40 mg SQ Q24H ILAN Stop: 10/07/18 15:59 Last Admin: 09/07/18 15:49 Dose: 40 mg Documented by: Folic Acid (Folvite) 1 mg PO QAM ILAN Stop: 10/07/18 14:56 Last Admin: 09/08/18 07:47 Dose: 1 mg Documented by: Lorazepam (Ativan) 1 mg in 2 mls @ 2 mls/min IV ONE PRN; Protocol PRN Reason: EtoH Withdrawal AWSS 6-10 Sodium Chloride (Nss 1000ml) 1,000 mls @ 125 mls/hr IV .Q8H ILAN Stop: 10/07/18 14:56 Last Admin: 09/08/18 07:47 Dose: 125 mls/hr Documented by: Multivitamins (Multivitamin Tab) 1 tab PO QAM ILAN Stop: 10/07/18 14:56 Last Admin: 09/08/18 07:47 Dose: 1 tab Documented by: Multivitamins/Minerals (Caltrate Plus) 1 tab PO PM ILAN Stop: 10/07/18 20:59 Last Admin: 09/07/18 22:11 Dose: Not Given Documented by:
[2018-09-08] MEDS: DOXYCYCLINE HYCLATE 100 MG CAP PO SCH (17:05)
[2018-09-08] MEDS: CALCIUM 600MG + VIT D 400 IU TAB PO SCH (20:57)
[2018-09-09 07:56] LABS: Hematocrit (blood only) 35.3 % (37-47); Hemoglobin 12.2 g/dL (12.0-16.0); Mean Corpuscular Hgb Conc 34.6 g/dL (32-36); Mean Corpuscular Volume 94.4 fL (80-100); Mean Platelet Volume 11.9 fL (7.4-10.4); Platelet Count 78 K/uL (130-400); RDW Coefficient of Variation 14.4 % (11.5-14.5); RDW Standard Deviation 49.7 fL (36.4-46.3); Red Blood Count 3.74 M/uL (4.2-5.4); White Blood Count 2.75 K/uL (4.8-10.8)
[2018-09-09 07:58] LABS: Basophils # (auto) 0.02 K/uL (0-0.2); Basophils % (auto) 0.7 %; Eosinophils # (auto) 0.01 K/uL (0-0.5); Eosinophils % (auto) 0.4 %; Giant Platelets 1+; Immature Granulocytes # (auto) 0.01 K/uL (0.00-0.02); Immature Granulocytes % (auto) 0.4 %; Lymphocytes # (auto) 1.39 K/uL (1.2-3.4); Lymphocytes % (auto) 50.5 %; Monocytes # (auto) 0.47 K/uL (0.11-0.59); Monocytes % (auto) 17.1 %; Neutrophils # (auto) 0.85 K/uL (1.4-6.5); Neutrophils % (auto) 30.9 %
[2018-09-09 08:05] LABS: BUN Creatinine Ratio 12.2 (10-20); Calcium 8.1 mg/dl (8.5-10.1); Creatinine Clr Calc Pharmacy 69.9 ml/min; Est GFR (African American) 100.6; Est GFR (Non-African American) 86.8; Magnesium 2.2 mg/dl (1.8-2.4); Potassium 3.2 mmol/L (3.5-5.1)
[2018-09-09] MEDS: MULTIVITAMIN TAB PO SCH (08:09)
[2018-09-09] MEDS: DOXYCYCLINE HYCLATE 100 MG CAP PO SCH ×2 (08:10→18:32)
[2018-09-09] MEDS: FOLIC ACID 1 MG TAB PO SCH (08:10)
--- NOTE | 2018-09-09 09:16 | Hospitalist Progress Note ---
Date of Service September 09, 2018 Assessment & Plan (1) Neutropenia: Likely secondary to infection. Placed on neutropenic precautions. Patient is afebrile. (2) Anaplasmosis: Doxy, cont supportive care. Trend daily labs. Leukopenia and thrombocytopenia present and consistent with infection. Appreciate ID recommendations. (3) Orthostatic hypotension: -Likely secondary to hypovolemia from dehydration of acute illness -IVF, orthostatics are negative this morning. -We will restart lisinopril now. (4) Elevated AST (SGOT): -Possibly due to underlying viral /tickborne illness -Patient also with history of alcohol abuse, drinking 4 beers/day -Monitor (5) Alcohol abuse: -Drinks 4 beers/day -Monitor for signs of withdrawal -Continue multivitamin, folic acid, thiamine (6) Tobacco abuse: Patient counseled regarding tobacco cessation (7) DVT prophylaxis: SCDs with Lovenox held in setting of thrombus cytopenia. Full code Disposition-transfer to [facility]. Sherie Donato DO [facility] Hospitalist Subjective Feeling well and improved since yesterday. Afebrile. Tolerating p.o. Reports that some paresthesias that were felt yesterday in the bilateral arms and face have now improved and are almost gone. Review of Systems Review of Systems: All systems reviewed & are unremarkable except as noted in HPI & below Physical Exam Physical Exam: CONSTITUTIONAL: WNWD, vitals as above, generally well- appearing EYES: normal conjunctivae, no scleral icterus ENT: MMM RESPIRATORY: clear to auscultation bilaterally, no crackles, rales or wheezes, normal respiratory effort CARDIOVASCULAR: regular rate and rhythm, S1 and 2 heard without murmurs, gallops or rubs, no JVD, no peripheral edema GASTROINTESTINAL: normal bowel sounds, soft, nontender, nondistended MUSCULOSKELETAL: strength 5/5 throughout, head is normocephalic and atraumatic, neck supple, normal palpation of chest wall without tenderness SKIN: warm and dry, no rashes or evidence of insect bite. NEUROLOGIC: CN 2-12 grossly intact, no sensory deficit, normal cognition, normal speech, no tremor. No gross focal deficits. PSYCHIATRIC: alert cooperative and oriented to person, place and time. Results & Data Vital Signs (Past 12 Hours) Vital Signs Temp Pulse Pulse Resp BP BP Pulse Ox 09/09/18 07:17 37.0 C 67 19 112/73 97 09/09/18 03:53 36.8 C 63 18 119/76 96 09/08/18 23:59 57 L 09/08/18 22:21 37.2 C 61 20 109/68 95 Laboratory Results Short CBC 09/09/18 Range/Units 07:18 WBC 2.75 L (4.8-10.8) K/uL Hgb 12.2 (12.0-16.0) g/dL Hct 35.3 L (37-47) % Plt Count 78 L (130-400) K/uL BMP 09/09/18 07:18 Sodium 142 Potassium 3.2 L Chloride 113 H Carbon Dioxide 21 BUN 8 Creatinine 0.68 Glucose 141 H Calcium 8.1 L Medications Administered Current Inpatient Medications Acetaminophen (Tylenol) 650 mg PO Q4H PRN PRN Reason: pain/fever Stop: 10/07/18 14:56 Last Admin: 09/07/18 15:14 Dose: 650 mg Documented by: Doxycycline Hyclate (Vibramycin) 100 mg PO Q12H ILAN Stop: 09/22/18 17:59 Last Admin: 09/09/18 08:10 Dose: 100 mg Documented by: Enoxaparin Sodium (Lovenox) 40 mg SQ Q24H ILAN Stop: 10/07/18 15:59 Last Admin: 09/07/18 15:49 Dose: 40 mg Documented by: Folic Acid (Folvite) 1 mg PO QAM ILAN Stop: 10/07/18 14:56 Last Admin: 09/09/18 08:10 Dose: 1 mg Documented by: Lorazepam (Ativan) 1 mg in 2 mls @ 2 mls/min IV ONE PRN; Protocol PRN Reason: EtoH Withdrawal AWSS 6-10 Multivitamins (Multivitamin Tab) 1 tab PO QAM [facility] Stop: 10/07/18 14:56 Last Admin: 09/09/18 08:09 Dose: 1 tab Documented by: Multivitamins/Minerals (Caltrate Plus) 1 tab PO PM ILAN Stop: 10/07/18 20:59 Last Admin: 09/08/18 20:57 Dose: 1 tab Documented by: Potassium Chloride (Klor-Con M20) 40 meq PO Q6H ILAN Stop: 09/09/18 15:31
--- NOTE | 2018-09-09 10:04 | Infectious Disease Consult ---
Date of Consultation September 09, 2018 Assessment & Plan (1) Anaplasmosis: 73-year-old female with what appears to be acute Anaplasma infection. Typically patients will respond quickly to doxycycline therapy, would continue 100 mg twice daily orally for 14 days. This would cover the possibility of early Lyme disease. Likely will take up to a week to get PCR results. Will follow. History of Present Illness Reason for Consultation: Anaplasma infection, falling white blood cell count, antibiotic recommendations Attending Physician: Sherie Donato, DO History of Present Illness 73-year-old female with a history of hypertension, dyslipidemia who was in usual state of health until several days prior to admission when she developed fever, chills, weakness and fatigue. Apparently was found somewhat confused by family members and brought to the hospital. She was found to have developing neutropenia and thrombocytopenia with minimal elevation of liver enzyme 1 inclusions seen on peripheral smear that could be consistent with Anaplasma infection. Has been started on doxycycline. Feeling better than 2 days ago. Has had multiple tick exposures, no rash, Lyme serology negative. Allergies Allergy/AdvReac Type Severity Reaction Status Date / Time nickel Allergy Unknown RASH WITH Verified 09/07/18 10:38 CONTACT tetracycline Allergy Unknown NAUSEA/VOMI Verified 09/07/18 10:38 TTING CHROME Allergy Unknown RASH WITH Uncoded 09/07/18 10:38 CONTACT Home Medications Home Medications Medication Instructions Recorded Confirmed Type calcium carbonate-vitamin D3 1 tab PO PM 09/07/18 09/07/18 History [Calcium 600 + D(3)] denosumab [Prolia] 60 mg SUBCUT UD 09/07/18 09/07/18 History lisinopril 10 mg PO PM 09/07/18 09/07/18 History [id number] 1 cap PO PM 09/07/18 09/07/18 History [Macular Health Formula] Patient History Medical History Osteoporosis (Chronic) Hypertension (Chronic) Dyslipidemia (Chronic) Surgical History History of tubal ligation (Chronic) Family History Mother Diabetes Hypertension Father Cancer Social History Preferred Language: Cambodian Communication Ability: Effective Visual Impairment: No Limitations Hearing Ability: Normal 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 Beliefs That Will Affect Care: None marital status: marital status details: Current Living Situation: Spouse Other Information That Helps Us Care for You: No Feels Safe at Home: Yes Safety Concerns: Feels Safe At This Time Smoking Status: Current every day smoker Tobacco Type: cigarettes Do You Dip or Chew Tobacco: No Second Hand Exposure: No Tobacco Cessation Education Requested by Patient: No Hx Alcohol Use: Yes Alcohol type: beer Alcohol Intake Frequency Comment: 4 beers/day Hx Substance Use: No Review of Systems Review of Systems: All systems reviewed & are unremarkable except as noted in HPI & below Physical Exam Constitutional: WD/WN, vitals as above comfortable; no acute distress Eyes: PERRL, conjunctivae normal, anicteric sclerae ENMT: external ear and nose normal, oropharynx normal Neck: trachea midline, no thyromegaly neck nontender Respiratory: normal respiratory effort, lungs clear to auscultation normal percussion; does not use accessory muscles Cardiovascular: Rate/Rhythm: regular rate and regular rhythm Heart Sounds: normal S1 and normal S2; no gallop, no murmur and no cardiac rub Vessels: normal peripheral pulses; no JVD Gastrointestinal (Abdomen): normal bowel sounds, soft, nontender, no hepatosplenomegaly Musculoskeletal: no cyanosis or clubbing, extremities motor strength 5/5 Spine: thoracic spine normal to inspection and lumbar spine normal to inspection; no cervical spinal tenderness Skin: no rashes, warm and dry normal turgor; no lesions Neurologic: patellar DTR's 2+ bilat, sensation intact no focal motor deficits Psychiatric: A+Ox3, euthymic affect Orientation: cooperative Lymphatic: no cervical or axillary lymphadenopathy no inguinal lymphadenopathy Results & Data Vital Signs (Past 12 Hours) Vital Signs Temp Pulse Pulse Resp BP BP Pulse Ox 09/09/18 07:17 37.0 C 67 19 112/73 97 09/09/18 03:53 36.8 C 63 18 119/76 96 09/08/18 23:59 57 L 09/08/18 22:21 37.2 C 61 20 109/68 95 Laboratory Results Short CBC 09/09/18 Range/Units 07:18 WBC 2.75 L (4.8-10.8) K/uL Hgb 12.2 (12.0-16.0) g/dL Hct 35.3 L (37-47) % Plt Count 78 L (130-400) K/uL BMP 09/09/18 07:18 Sodium 142 Potassium 3.2 L Chloride 113 H Carbon Dioxide 21 BUN 8 Creatinine 0.68 Glucose 141 H Calcium 8.1 L Diagnostic Findings Microbiology 09/07/18 10:37 Blood Aerobic Blood Culture - Preliminary No growth in Aerobic bottle after 24 hours. 09/07/18 10:37 Blood Anaerobic Blood Culture - Preliminary No growth in Anaerobic bottle after 24 hours. 09/07/18 10:28 Blood Aerobic Blood Culture - Preliminary No growth in Aerobic bottle after 24 hours. 09/07/18 10:28 Blood Anaerobic Blood Culture - Preliminary No growth in Anaerobic bottle after 24 hours. XR chest 1V portable CLINICAL HISTORY: 73 years-old Female presenting with Sepsis. TECHNIQUE: Portable upright AP view of the chest was obtained. COMPARISON: None. FINDINGS: Atherosclerosis of the aortic arch. Cardiac silhouette normal in size. No focal opacity. No large effusion or pneumothorax. Osseous structures normal. Upper abdomen normal. IMPRESSION: 1. No acute cardiopulmonary disease. Electronically signed by: Juice Rose M.D. 09/07/2018 10:34 AM Dictated: 09/07/18 1033 Transcribed: 09/07/18 1033
[2018-09-09] MEDS: POTASSIUM CHLORIDE 20 MEQ TABCR PO SCH ×2 (10:28→16:11)
[2018-09-09 13:19] LABS: 18KDIGG Band NONREACTIVE (NONREACTIVE); 23KDIGG Band NONREACTIVE (NONREACTIVE); 23KDIGM Band REACTIVE (NONREACTIVE); 28KDIGG Band NONREACTIVE (NONREACTIVE); 30KDIGG Band NONREACTIVE (NONREACTIVE); 39KDIGG Band NONREACTIVE (NONREACTIVE); 39KDIGM Band NONREACTIVE (NONREACTIVE); 41KDIGG Band REACTIVE (NONREACTIVE); 41KDIGM Band NONREACTIVE (NONREACTIVE); 45KDIGG Band NONREACTIVE (NONREACTIVE); 58KDIGG Band NONREACTIVE (NONREACTIVE); 66KDIGG Band NONREACTIVE (NONREACTIVE); 93KDIGG Band NONREACTIVE (NONREACTIVE); Lyme Antibodies, WB IgG NEGATIVE (NEGATIVE); Lyme Antibodies, WB IgM NEGATIVE (NEGATIVE)
[2018-09-09 19:33] LABS: Anaplasma phagocytophila IgM <1:20 (<1:20); Ehrlichia chaff IgG Ab <1:64 (<1:64); Ehrlichia chaff IgM Ab <1:20 (<1:20)
[2018-09-09] MEDS: CALCIUM 600MG + VIT D 400 IU TAB PO SCH (20:08)
[2018-09-09] MEDS ORDERED: LISINOPRIL 10 MG TAB PO SCH (21:00)
[2018-09-10] MEDS: DOXYCYCLINE HYCLATE 100 MG CAP PO SCH (05:24)
[2018-09-10 07:04] LABS: Hematocrit (blood only) 35.9 % (37-47); Hemoglobin 12.8 g/dL (12.0-16.0); Mean Corpuscular Hgb Conc 35.7 g/dL (32-36); Mean Platelet Volume 11.4 fL (7.4-10.4); Platelet Count 104 K/uL (130-400); RDW Coefficient of Variation 14.5 % (11.5-14.5); RDW Standard Deviation 49.3 fL (36.4-46.3); Red Blood Count 3.82 M/uL (4.2-5.4); White Blood Count 4.33 K/uL (4.8-10.8)
[2018-09-10 07:23] LABS: Alanine Aminotransferase 58 U/L (12-78); Alkaline Phosphatase 65 U/L (45-117); Aspartate Aminotransferase 40 U/L (15-37); BUN Creatinine Ratio 15.6 (10-20); Bilirubin Direct < 0.1 mg/dl (0-0.2); Bilirubin,Total 0.4 mg/dl (0.2-1); Blood Urea Nitrogen 11 mg/dl (7-18); Calcium 9.8 mg/dl (8.5-10.1); Carbon Dioxide 25 mmol/L (21-32); Chloride 109 mmol/L (98-107); Creatinine Clr Calc Pharmacy 66.9 ml/min; Est GFR (African American) 97.9; Est GFR (Non-African American) 84.5; Glucose 99 mg/dl (70-99); Potassium 4.2 mmol/L (3.5-5.1); Sodium 141 mmol/L (136-145); Total Protein 6.7 gm/dl (6.4-8.2)
[2018-09-10 08:06] LABS: ALC (manual) 1.95 K/uL (1.2-3.4); Basophils # (manual) 0.04 K/uL (0-0.2); Basophils % (manual) 0.9 %; Lymphocytes # (manual) 1.19 K/uL (1.2-3.4); Lymphocytes % (manual) 27.4 %; Monocytes # (manual) 0.69 K/uL (0.11-0.59); Monocytes % (manual) 15.9 %; Neutrophils % (manual) 38.1 %; RBC Morphology Unremarkable; Reactive Lymphocytes # (manual) 0.77 K/uL
[2018-09-10] MEDS: FOLIC ACID 1 MG TAB PO SCH (08:51)
[2018-09-10] MEDS: MULTIVITAMIN TAB PO SCH (08:51)
--- NOTE | 2018-09-10 10:33 | Discharge Summary ---
Date of Service September 10, 2018 Admission HPI Per Admitting Provider 73-year-old female who presents to the ED with generalized weakness and confusion. Family is at the bedside who provides some history. Yesterday, patient developed generalized weakness and nausea. She reports she felt as though she had a fever yesterday morning and took her temperature and it was just above 100 F. This morning, family noted that she was confused and very weak. She was also complaining of low back pain. EMS was called and patient was brought to the ED for further evaluation. Normally patient is very active and spends a lot of time outdoors in her flower garden. She reports she has pulled a 4 ticks off of herself over the past few months. Last one was about 1 month ago. Also a month ago, patient underwent a dental procedure and was given amoxicillin to take for 1 week after. She reports she completed the course of this antibiotic. No chest pain or shortness of breath. Patient was lightheaded and dizzy however no syncopal event. She denies abdominal pain, vomiting, diarrhea. No urinary symptoms. No known rashes. In the ED, patient is febrile at 39.3 and initially tachycardic in the 110s which improved with IVF. Labs show WBC 3.5K,, K+ 3.0, AST 60. Initial Lyme testing is negative. UA does not suggest UTI. CXR is negative for acute cardiopulmonary findings. Admission Exam Per Admitting Provider WD/WN, vitals as above Eyes: PERRL, conjunctivae normal, anicteric sclerae ENMT: external ear and nose normal, oropharynx normal Respiratory: normal respiratory effort, lungs clear to auscultation Cardiovascular: Rate/Rhythm: regular rate and regular rhythm Vessels: normal peripheral pulses Extremities: no edema Gastrointestinal (Abdomen): normal bowel sounds, soft, nontender, no hepa tosplenomegaly Musculoskeletal: no cyanosis or clubbing, extremities motor strength 5/5 Skin: no rashes, warm and dry Neurologic: PERRL, EOMI, accommodation nl, no face palsy, no dysarthria Psychiatric: A+Ox3, euthymic affect Principal Diagnosis Anaplasmosis Neutropenia 2/2 tick-related illness-resolved Thrombocytopenia 2/2 tick-related illness-resolved Discharge Data Allergies Allergy/AdvReac Type Severity Reaction Status Date / Time nickel Allergy Unknown RASH WITH Verified 06/18/19 10:38 CONTACT tetracycline Allergy Unknown NAUSEA/VOMI Verified 09/07/18 10:38 TTING CHROME Allergy Unknown RASH WITH Uncoded 09/07/18 10:38 CONTACT Consultations 09/07/18 12:03 ED Decision to Admit Stat 09/09/18 08:20 Consult Infectious Diseases Routine Hospital Course (1) Anaplasmosis: (2) Neutropenia: (3) Orthostatic hypotension: (4) Elevated AST (SGOT): (5) Alcohol abuse: (6) Tobacco abuse: 73-year-old female presented to the emergency department with generalized weakness, confusion and fever. She was excessively fatigued at home for two days and somewhat encephalopathic prompting family to be concerned and send her for evaluation. The patient had reportedly pulled four ticks off herself over the past few months with the last one being two weeks ago. 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 There was no rash or other physical exam finding and the patient improved with doxycycline. Peripheral smear revealed inclusion bodies consistent with Anaplasma and doxycycline was continued as monotherapy. Lab work revealed a positive Anaplasma PCR, Lyme was negative and Ehrlichia was negative as well. On hospital day 2 she became even more leukopenic than admission despite clinical improvement. On hospital day 3 white blood cell count improved but she was neutropenic. Of note, a differential was not performed on CBC the day p rior. It is likely the patient was neutropenic at that time, also. The following day her labs improved with a resolution of neutropenia. She remained afebrile for greater than 48 hours and was clinically improved. Of note she did report some bilateral arm paresthesias and facial paresthesias that were generalized. These were most pronounced on HD2 and continued to improve and resolve by time of discharge. Otherwise she was a symptomatic. [id number] examination performed on day of discharge and was unremarkable. Again no skin lesions were noted. She was mentating and ambulating at baseline and tolerating p.o. She was hemodynamically stable and was discharged on a 2-week course of doxycycline with close primary care follow-up recommended. Of note she had did have an elevated AST to 63 which improved with treatment to 40. She is also notably a heavier drinker. Would recommend follow-up of liver enzymes per primary care nonurgently. Total Time Total Time Spent Total Time Spent (In Minutes): 60 Total Time Includes: Examination of the Patient, Discharge Planning, Medication Reconciliation, Communication With Other Providers and Other (established follow-up appointment) Discharge Plan Discharge Items Patient Disposition: Home - Self-Care Reason For Visit: FEBRILE ILLNESS Discharge Diagnosis: Anaplasmosis Neutropenia 2/2 tick-related illness-resolved Thrombocytopenia 2/2 tick-related illness-resolved Condition: Good Discharge Goals: Therapeutic intervention Activity: Resume your previous activity Non-emergency contact: Primary Care Provider Call non-emergency contact if: you have any medication questions Follow-up/Referrals: Shade Obrien DO [Primary Care Provider] - Diet: Low Sodium (2gm) Addtl Provider Instructions: Please take all medications as instructed on discharge list below. It is recommended that you follow-up with your primary care provider: 09/13/2018 11:10 AM Shade Obrien DO Family [facility] It was a pleasure taking care of you! Please call if you have any questions or problems. You can reach a [facility] hospitalist on duty at [facility] 24 hours a day by calling [phone]. Take care of yourself. Sherie Donato DO [facility] Hospitalist Prescriptions: New doxycycline hyclate 100 mg Capsule 100 mg PO Q12H 12 Days Qty: 24 RF: 0 Continued calcium carbonate-vitamin D3 [Calcium 600 + D(3)] 600 mg(1,500mg) -200 unit Tablet 1 tab PO PM RF: 0 lisinopril 10 mg Tablet 10 mg PO PM RF: 0 Prolia 60 mg/mL Syringe 60 mg SUBCUT UD RF: 0 Macular Health Formula 5-1-7.5 mg Capsule 1 cap PO PM RF: 0 Stand-Alone Forms: My [facility] Discharge Orders: Discharge Order (Routine); Ordered 09/10/18 Ordered By: Sherie Donato Admission Data Admit Date/Time: 09/07/18 12:40 Attending Provider: Sherie Donato Admit Provider: Oumou Bonilla Primary Care Provider: Shade Obrien Other Providers: Oumou Bonilla ; Emeli Rockwell Service: Telemetry Medical Other Pending Studies at Discharge: No
--- NOTE | 2018-09-13 12:46 | Coding Query ---
To promote full compliance with coding requirements relating to patient care, provider participation is requested in all cases of pre coder uncertainty. Please assist us with the question(s) below: Coding Question: Sepsis was documented in the H&P and PN but not mentioned on the discharge summary, please clarify if the patient was treated for sepsis. Thank you so much for you help! SEPSIS ( x ) Diagnosed and POA ( ) Diagnosed and not POA ( ) Ruled out ( ) Other (please specify) MTDD
== END 2018-09-10 13:34 | disposition home or self-care (01) | DRG 872 ==
LOC: ED 10:15 → 2W 12:40